=== PATIENT | male | born 1985 | race Caucasian/White ===

== ENCOUNTER 2019-01-30 03:16 | Emergency (ER) | payer OTHER ==
[~2019-01-30] VITALS: Ht 185.4 cm; Wt 81.6 kg
[2019-01-30] MEDS ORDERED: IV NORMAL SALINE 1000ML BAG 1,000 ML IV ONE (04:00)
[2019-01-30] MEDS ORDERED: KETOROLAC 15 MG/ML VIAL. IV ONE (04:00)
[2019-01-30] MEDS ORDERED: FAMOTIDINE 20 MG/2 ML VIAL IVP ONE (04:00)
[2019-01-30] MEDS ORDERED: METOCLOPRAMIDE HCL 10 MG/2 ML VIAL. IV ONE (04:00)
[2019-01-30 04:02] LABS: BASO # 0.1 x10^3/uL (0.0-0.2); BASO % 1 % (0-3); EOS # 0.1 x10^3/uL (0.0-0.7); EOS % 1 % (0-3); HEMATOCRIT 44.9 % (39.0-53.0); HEMOGLOBIN 15.2 g/dL (13.0-17.5); LYMPH % 10 % (24-48); MEAN CORPUSCULAR HEMOGLOBIN 29 pg (25-35); MEAN CORPUSCULAR HGB CONC 34 g/dL (31-37); MEAN CORPUSCULAR VOLUME 86 fL (79-100); MONO # 0.9 x10^3/uL (0.0-1.1); MONO % 5 % (0-9); NEUT # 15.9 x10^3/uL (1.8-7.7); NEUT % 84 % (31-73); PLATELET COUNT 152 x10^3/uL (140-400)
[2019-01-30 04:14] LABS: CALCIUM 8.9 mg/dL (8.5-10.1); GFR 85.5; POTASSIUM 3.7 mmol/L (3.5-5.1)
[2019-01-30 04:20] LABS: ALBUMIN 3.9 g/dL (3.4-5.0); MAGNESIUM 1.5 mg/dL (1.8-2.4); TOTAL BILIRUBIN 0.3 mg/dL (0.2-1.0)
[2019-01-30] MEDS ORDERED: diphenhydrAMINE 50 MG/ML VIAL IVP ONE (04:30)
--- NOTE | 2019-01-30 05:52 | RAD ---
CT abdomen and pelvis without contrast: Reason for examination: Right flank pain. Evaluate for ureteral calculi. Helical images were obtained through the abdomen pelvis with no contrast administered. Reconstruction was performed in sagittal and coronal planes. Exposure: One or more of the following individualized dose reduction techniques were utilized for this examination: 1. Automated exposure control 2. Adjustment of the mA and/or kV according to patient size 3. Use of iterative reconstruction technique. The lung bases show some dependent atelectasis. The heart size is normal with no pericardial effusion. There is a small hiatal hernia. No abnormality seen at the liver, gallbladder, spleen, adrenal glands or pancreas. The abdominal aorta and inferior vena cava show no acute abnormalities. No abnormality seen at the appendix. The colon shows no diverticulosis or diverticulitis or colitis. The small intestinal tract shows no abnormal dilatation or wall thickening and no obstruction. No abnormality seen at the stomach. The left kidney shows no renal mass, renal calculus, hydronephrosis or obstructive uropathy. The right kidney shows no renal mass but there is a 2.7 mm calcification at the mid right ureter causing mild hydronephrosis. No abnormality seen at the bladder. There is calcification in the prostate gland. Seminal vesicles are symmetric. No free fluid or free air is seen in the abdomen or pelvis. There is some there is fat in the central mesentery which may reflect some mesenteritis. IMPRESSION: Hazy fat density in the central mesentery which may reflect some mesenteritis. 2.7 mm calcification at the mid right ureter with mild hydronephrosis from obstructive uropathy. Electronically signed by: Silvia Guan MD (01/30/2019 5:49 AM) [facility]
[2019-01-30 06:00] VITALS: BP 120/68
[2019-01-30] MEDS ORDERED: ONDA4TAB12 PO (06:22)
[2019-01-30] MEDS ORDERED: HYDR-3164 PO (06:22)
[2019-01-30] MEDS ORDERED: TAMS0.4C97 PO (06:22)
--- NOTE | 2019-01-30 06:22 | PHYS DOC ---
Past Medical History Past Medical History: No Pertinent History (MARY LOU WAGNER DO) Past Surgical History: Other Additional Past Surgical Histo: HERNIA REPAIR (MARY LOU WAGNER DO) Smoking: Cigarettes Alcohol Use: Occasionally Drug Use: None (MARY LOU WAGNER DO) Adult General Chief Complaint Chief Complaint: FLANK PAIN HPI HPI 33-year-old male presents with report of sudden right-sided flank pain associated with nausea and vomiting which occurred this evening just prior to arrival. Denies known trauma. Denies fever or chills. Patient reports he was able to have a BM with some improvement of symptoms. Denies history of kidney stone. Denies hematuria or dysuria. Denies known sick contacts. (MARY LOU WAGNER DO) Review of Systems Review of Systems Constitutional: Denies fever or chills Eyes: Denies redness or eye pain HENT: Denies nasal congestion or sore throat Respiratory: Denies cough or shortness of breath Cardiovascular: Denies chest pain or palpitations GI: Reports right-sided abdominal pain, nausea, and vomiting : Denies dysuria or hematuria Musculoskeletal: Reports right flank pain Integument: Denies rash or skin lesions Neurologic: Denies headache, focal weakness or sensory changes Complete systems were reviewed and found to be within normal limits, except as documented in this note. (MARY LOU WAGNER DO) Current Medications Current Medications Current Medications Medications (Trade) Dose Ordered Sig/Belinda Start Time Stop Time Status Last Admin Dose Admin Diphenhydramine HCl (Benadryl) 50 mg 1X ONCE 01/30/19 04:30 01/30/19 05:07 DC 01/30/19 04:31 50 MG Famotidine (Pepcid Vial) 20 mg 1X ONCE 01/30/19 04:00 01/30/19 04:01 DC 01/30/19 04:07 20 MG Ketorolac Tromethamine (Toradol 15mg Vial) 15 mg 1X ONCE 01/30/19 04:00 01/30/19 04:01 DC 01/30/19 04:07 15 MG Metoclopramide HCl (Reglan Vial) 10 mg 1X ONCE 01/30/19 04:00 01/30/19 04:01 DC 01/30/19 04:12 10 MG Sodium Chloride 1,000 ml @ 1,000 mls/hr 1X ONCE 01/30/19 04:00 01/30/19 04:59 DC 01/30/19 04:07 1,000 MLS/HR Tamsulosin HCl (Flomax) 0.4 mg 1X ONCE 01/30/19 06:30 01/30/19 06:31 DC 01/30/19 06:58 0.4 MG (TIFF BOWENS MD) Allergies Allergies Allergies Coded Allergies Type Severity Reaction Last Updated Verified No Known Drug Allergies 01/30/19 No (TIFF BOWENS MD) Physical Exam Physical Exam Constitutional: Well developed, well nourished, no acute distress, non-toxic appearance, anxious HENT: Normocephalic, atraumatic, oropharynx moist Eyes: Conjunctiva normal, no discharge Neck: Normal range of motion, no tenderness, supple Cardiovascular: Heart rate normal, regular rhythm Lungs & Thorax: Bilateral breath sounds clear to auscultation, no wheezing Abdomen: Soft, no tenderness, no guarding/rebound tenderness/distention Skin: Warm, dry, no erythema, no rash Back: No tenderness, right CVA tenderness Extremities: No tenderness, ROM intact, no edema Neurologic: Alert and oriented X 3, no focal deficits noted Psychologic: Affect anxious, judgement normal (MARY LOU WAGNER DO) Current Patient Data Vital Signs Vital Signs Date Time Temp Pulse Resp B/P (MAP) Pulse Ox O2 Delivery O2 Flow Rate FiO2 01/30/19 04:30 82 11 123/68 (86) 96 Room Air 01/30/19 03:25 97.6 97.6 (TIFF BOWENS MD) Lab Values Laboratory Tests Test 01/30/19 03:39 01/30/19 06:35 White Blood Count 19.0 x10^3/uL (4.0-11.0) H Red Blood Count 5.20 x10^6/uL (4.30-5.70) Hemoglobin 15.2 g/dL (13.0-17.5) Hematocrit 44.9 % (39.0-53.0) Mean Corpuscular Volume 86 fL (79-100) Mean Corpuscular Hemoglobin 29 pg (25-35) Mean Corpuscular Hemoglobin Concent 34 g/dL (31-37) Red Cell Distribution Width 14.0 % (11.5-14.5) Platelet Count 152 x10^3/uL (140-400) Neutrophils (%) (Auto) 84 % (31-73) H Lymphocytes (%) (Auto) 10 % (24-48) L Monocytes (%) (Auto) 5 % (0-9) Eosinophils (%) (Auto) 1 % (0-3) Basophils (%) (Auto) 1 % (0-3) Neutrophils # (Auto) 15.9 x10^3/uL (1.8-7.7) H Lymphocytes # (Auto) 2.0 x10^3/uL (1.0-4.8) Monocytes # (Auto) 0.9 x10^3/uL (0.0-1.1) Eosinophils # (Auto) 0.1 x10^3/uL (0.0-0.7) Basophils # (Auto) 0.1 x10^3/uL (0.0-0.2) Platelet Estimate Pending Sodium Level 141 mmol/L (136-145) Potassium Level 3.7 mmol/L (3.5-5.1) Chloride Level 103 mmol/L (98-107) Carbon Dioxide Level 26 mmol/L (21-32) Anion Gap 12 (6-14) Blood Urea Nitrogen 13 mg/dL (8-26) Creatinine 1.0 mg/dL (0.7-1.3) Estimated GFR (Cockcroft-Gault) 85.5 BUN/Creatinine Ratio 13 (6-20) Glucose Level 138 mg/dL (70-99) H Calcium Level 8.9 mg/dL (8.5-10.1) Magnesium Level 1.5 mg/dL (1.8-2.4) L Total Bilirubin 0.3 mg/dL (0.2-1.0) Aspartate Amino Transferase (AST) 16 U/L (15-37) Alanine Aminotransferase (ALT) 26 U/L (16-63) Alkaline Phosphatase 107 U/L (46-116) Total Protein 8.0 g/dL (6.4-8.2) Albumin 3.9 g/dL (3.4-5.0) Albumin/Globulin Ratio 1.0 (1.0-1.7) Lipase 53 U/L (73-393) L Urine Collection Type Unknown Urine Color Yellow Urine Clarity Clear Urine pH 7.5 Urine Specific [place] 1.015 Urine Protein Negative mg/dL (NEG-TRACE) Urine Glucose (UA) Negative mg/dL (NEG) Urine Ketones (Stick) Negative mg/dL (NEG) Urine Blood Large (NEG) Urine Nitrite Negative (NEG) Urine Bilirubin Negative (NEG) Urine Urobilinogen Dipstick 1.0 mg/dL (0.2 mg/dL) Urine Leukocyte Esterase Trace (NEG) Urine RBC Tntc /HPF (0-2) Urine WBC 1-4 /HPF (0-4) Urine Squamous Epithelial Cells Few /LPF Urine Bacteria 0 /HPF (0-FEW) Laboratory Tests 01/30/19 03:39 Laboratory Tests 01/30/19 03:39 (TIFF BOWENS MD) EKG EKG [] (MARY LOU WAGNER DO) Radiology/Procedures Radiology/Procedures PROCEDURE: CT ABDOMEN PELVIS WO CONTRAST CT abdomen and pelvis without contrast: Reason for examination: Right flank pain. Evaluate for ureteral calculi. Helical images were obtained through the abdomen pelvis with no contrast administered. Reconstruction was performed in sagittal and coronal planes. Exposure: One or more of the following individualized dose reduction techniques were utilized for this examination: 1. Automated exposure control 2. Adjustment of the mA and/or kV according to patient size 3. Use of iterative reconstruction technique. The lung bases show some dependent atelectasis. The heart size is normal with no pericardial effusion. There is a small hiatal hernia. No abnormality seen at the liver, gallbladder, spleen, adrenal glands or pancreas. The abdominal aorta and inferior vena cava show no acute abnormalities. No abnormality seen at the appendix. The colon shows no diverticulosis or diverticulitis or colitis. The small intestinal tract shows no abnormal dilatation or wall thickening and no obstruction. No abnormality seen at the stomach. The left kidney shows no renal mass, renal calculus, hydronephrosis or obstructive uropathy. The right kidney shows no renal mass but there is a 2.7 mm calcification at the mid right ureter causing mild hydronephrosis. No abnormality seen at the bladder. There is calcification in the prostate gland. Seminal vesicles are symmetric. No free fluid or free air is seen in the abdomen or pelvis. There is some there is fat in the central mesentery which may reflect some mesenteritis. IMPRESSION: Hazy fat density in the central mesentery which may reflect some mesenteritis. 2.7 mm calcification at the mid right ureter with mild hydronephrosis from obstructive uropathy. Electronically signed by: Silvia Guan MD (01/30/2019 5:49 AM) [facility] (MARY LOU WAGNER DO) Course & Med Decision Making Course & Med Decision Making Pertinent Labs and Imaging studies reviewed. (See chart for details) Patient presents with history of present illness and physical exam concerning for possible kidney stone. Labs obtained and posted to chart. BUN/creatinine within normal limits. CT abdomen/pelvis with findings consistent for the 2.7 mm ureteral calculi. Pain/nausea addressed. Flomax provided. IV fluid hydration given. UA pending. Sign out given to Dr. Bowens regarding follow-up on UA results. Sign out paperwork printed by myself. Patient stable for discharge with outpatient follow-up with PCP/urologist. Urology referral provided. Discussed findings and plan with patient and family, who acknowledge understanding and agreement. (MARY LOU WAGNER DO) Course & Med Decision Making UA did not show infection and only had blood. Plan to discharge patient home with urine strainer and instruction to follow up with urology on-call. (TIFF BOWENS MD) Dragon Disclaimer Dragon Disclaimer This electronic medical record was generated, in whole or in part, using a voice recognition dictation system. (MARY LOU WAGNER DO) Departure Departure Impression: Primary Impression: Kidney stone Disposition: 01 HOME, SELF-CARE Condition: STABLE Referrals: NO PCP (PCP) DANIEL BILL MD Patient Instructions: Diet for Kidney Stones, Kidney Stones, [id number] Scripts Tamsulosin Hcl (FLOMAX) 0.4 Mg Cap.er.24h 1 CAP PO DAILY, #5 CAP Prov: MARY LOU WAGNER DO 01/30/19 Ondansetron (ONDANSETRON ODT) 4 Mg Tab.rapdis 1 TAB PO PRN Q6-8HRS PRN for NAUSEA, #16 TAB Prov: MARY LOU WAGNER DO 01/30/19 MARY LOU WAGNER DO Jan 30, 2019 06:22 TIFF BOWENS MD Jan 30, 2019 07:15
[2019-01-30] MEDS ORDERED: TAMSULOSIN 0.4 MG CAP.ER.24H. PO ONE (06:30)
[2019-01-30 06:47] LABS: BILIRUBIN,URINE NEGATIVE (NEG); CLARITY,URINE CLEAR; COLOR,URINE YELLOW; NITRITE,URINE NEGATIVE (NEG); PH,URINE 7.5; PROTEIN,URINE NEGATIVE (NEG-TRACE)
[2019-01-30 07:07] LABS: BACTERIA,URINE 0 /HPF (0-FEW); RBC,URINE TNTC /HPF (0-2); SQUAMOUS EPITHELIAL CELL,UR FEW /LPF
[2019-01-30 08:23] LABS: % EOS 2 % (0-5); % LYMPHS 11 % (24-48); % MONOS 6 % (0-10); % SEGS 81 % (35-66); PLT ESTIMATE ADEQUATE (ADEQUATE)
== END 2019-01-30 07:13 | disposition home or self-care (01) ==
LOC: ER 03:16
DX: N20.0 Calculus of kidney (principal); R11.2 Nausea with vomiting, unspecified; Z98.890 Other specified postprocedural states; F17.210 Nicotine dependence, cigarettes, uncomplicated
CPT/HCPCS: 36415; 74176; 80053; 81001; 83690; 83735; 85007; 85025; 87086; 96361; 96374; 96375; 99285; J1200; J1885; J2765; J3490; J7030